=== PATIENT | male | born 1975 | race African-American/Black ===

== ENCOUNTER 2025-07-23 16:00 | Emergency (ER) | payer OTHER ==
[~2025-07-23] VITALS: Ht 172.7 cm; Wt 79.4 kg
[2025-07-23] MEDS ORDERED: ALBUTEROL FS 2.5 MG/3 ML VIAL.NEB ONE (18:08)
[2025-07-23] MEDS ORDERED: IPRATROPIUM NEB FS 0.5 MG/2.5 ML AMPUL.NEB ONE (18:08)
[2025-07-23 18:12] VITALS: O2SAT 96
[2025-07-23] MEDS: IPRATROPIUM NEB FS 0.5 MG/2.5 ML AMPUL.NEB NEB ONE (18:12)
[2025-07-23] MEDS: ALBUTEROL FS 2.5 MG/3 ML VIAL.NEB NEB ONE (18:12)
[2025-07-23] MEDS: IV NS 0.9% 1,000 ML IV ONE (18:18)
[2025-07-23 18:27] VITALS: O2SAT 100
[2025-07-23 18:28] LABS: PLATELET COUNT (AUTO) 277 K/uL (150-450); RED BLOOD CELL COUNT(AUTO) 4.75 MIL/uL (4.5-6.0); RED CELL DISTRIBUTION WIDTH 12.2 % (11.5-15.0); WHITE BLOOD COUNT (AUTO) 6.1 K/uL (4.3-11.0)
[2025-07-23 18:38] LABS: CALCIUM, SERUM 8.2 mg/dL (8.5-10.1); CREATININE 1.1 mg/dL (0.6-1.3); SODIUM SERUM 138.0 mmol/L (136-145); UREA NITROGEN, BLOOD 18.0 mg/dL (7-18)
[2025-07-23] MEDS ORDERED: BENZ-13 PO (20:04)
[2025-07-23] MEDS ORDERED: ALBU18HF2 INH (20:04)
[2025-07-23] MEDS ORDERED: IPRA12.9 INH (20:04)
[2025-07-23] MEDS ORDERED: METH4TAB17 PO (20:04)
[2025-07-23] MEDS ORDERED: IBUP-1490 PO (20:04)
[2025-07-23 20:15] VITALS: BP 127/84; TEMP 98.2; O2SAT 99
== END 2025-07-23 20:16 | disposition home or self-care (01) ==
LOC: ER 16:06
DX: J45.901 Unspecified asthma with (acute) exacerbation (principal)
CPT/HCPCS: 99285; 96360; 71045; 93005; 85025; 80048; 36415; 94640; J7512; J7030